=== PATIENT | female | born 1980 | race Native Hawaiian/Other Pacific Islander ===

== ENCOUNTER 2022-06-10 18:37 | Emergency (ER) | payer OTHER, MEDICAID, SELFPAY ==
[2022-06-10] VITALS (9 sets, daily range): BP systolic 109–126; BP diastolic 59–80; PULSE 63–83; RESP 11–23; TEMP 36.9; O2SAT 97–99; BMI 24.9
[2022-06-10 19:39] LABS: Add Manual Diff / Slide Review NO; Basophils Absolute Auto 100 /uL (0-100); Basophils Percent Auto 1.1 % (0-2); Eosinophils Absolute Auto 300 /uL (0-450); Eosinophils Percent Auto 3.6 % (2-4); Hematocrit 35.3 % (36-46); Hemoglobin 12.4 g/dL (12.0-16.0); Lymphocytes Absolute Auto 1500 /uL (1100-4500); Lymphocytes Percent Auto 17.4 % (25-40); Mean Corpuscular HGB Conc 35.1 % (30-36); Mean Corpuscular Hemoglobin 32.9 PG (26-34); Mean Corpuscular Volume 93.6 fL (80-100); Monocytes Absolute Auto 500 /uL (0-900); Monocytes Percent Auto 6.6 % (3-14); Neutrophils Absolute Auto 6000 /uL (1500-7000); Neutrophils Percent Auto 71.3 % (50-75); Platelet Count 349 X10^3/uL (150-400); Red Blood Cell Count 3.76 X10^6/uL (4.0-5.2); White Blood Cell Count 8.4 X10^3/uL (4.5-11.0)
[2022-06-10 19:42] LABS: INR 0.8 (0.9-1.3); Prothrombin Time 9.1 SECONDS (10.1-12.7)
[2022-06-10 19:45] LABS: PTT Partial Thromboplastin Tim 28 SECONDS (26.4-36.2)
[2022-06-10 19:50] LABS: Alanine Aminotransferase 15 IU/L (<35); Albumin 3.7 g/dL (3.5-5.0); Albumin Globulin Ratio 1.2 (1.0-2.8); Alkaline Phosphatase 43 U/L (38-126); Aspartate Aminotransferase 21 IU/L (14-36); BUN Creatinine Ratio 15.4 (6-22); Bilirubin Total 0.2 mg/dL (0.2-1.3); Blood Urea Nitrogen 10 mg/dL (7-17); Calcium 8.6 mg/dL (8.4-10.2); Carbon Dioxide 24 mmol/L (22-32); Chloride 106 mmol/L (98-107); Estimated Glomerular Filt Rate > 60 mL/min (>60); Globulin 3.1 g/dL (1.7-4.1); Glucose 88 mg/dL (70-100); HEMOLYSIS < 15 (0-50); Lipase 136 U/L (23-300); Potassium 3.8 mmol/L (3.4-5.1); Sodium 135 mmol/L (137-145); Total Protein 6.8 g/dL (6.3-8.2)
--- NOTE | 2022-06-10 19:50 | DI.US.S_ITS ---
PROCEDURE: US OB <= 14 WEEKS FETUS INDICATIONS: RLQ PAIN OUTSIDE/PRIOR DATING DATA: Last menstrual period (LMP): Unknown. First dating scan (date and location): 06/10/2022. Estimated date of delivery (RAMBO) from first dating scan: 01/04/2023. TECHNIQUE: Real-time scanning was performed of the fetuses and maternal pelvic organs, with image documentation. Endovaginal scanning: Performed for better visualization of the fetuses and maternal adnexal structures. COMPARISON: None. FINDINGS: Embryo: There is an intrauterine with a gestational sac, yolk sac, and pole identified. The crown-rump length measures up to 3.4 cm corresponding to a gestational age of 10 weeks 2 days. There is heart motion with a rate of 175 beats per minute. Maternal organs: The ovaries were not well seen. No adnexal masses identified. IMPRESSION: 1. Single living intrauterine with measurements corresponding to a calculated gestational age of 10 weeks 2 days and estimated delivery date of 01/04/2023. We strive to produce accurate, complete, and clear reports of imaging services. To assist us in improving patient care, this report was composed using standard report templates and voice recognition software. Therefore, it may contain abnormal punctuation, insertions and/or omissions. Occasional wrong-word or sound-alike substitutions may occur. Though we review the report and make efforts to correct it, we do recommend that the report be read carefully in proper context to recognize any text inaccuracies. Dictated by: Justin Avendaño M.D. on 06/10/2022 at 21:51 Approved by: Justin Avendaño M.D. on 06/10/2022 at 21:54
--- NOTE | 2022-06-10 19:51 | ED.GENADULT ---
HPI - General Adult General Chief complaint: Abdominal Pain Stated complaint: ABD pain, 8-10 weeks Time Seen by Provider: 06/10/22 19:29 History of Present Illness HPI narrative: Otherwise healthy 42-year-old G4 P to 42-year-old woman presents with right lower quadrant pain that is been increasing over the last 24 hours. She has been having chills today notes constipation that was treated with suppository and she started some MiraLax, related nausea. Was the nausea over the last number of weeks that caused her to do a home test last week and confirm that she is in fact . Her 2 children are both in a school in this is is apprised and she notes that she has very irregular periods with her LMP sometime in April. She has not yet decided if the will continue and has not scheduled an appointment with an OBGYN yet. She notes that the right lower quadrant pain is becoming more and more persistent to the point where she is no longer able to ignore it. Because she is she has not taking any [id number] medications. She denies fevers, cough, chills, chest pain, shortness of breath, headaches. She notes that she did not require RhoGAM with her prior pregnancies. She describes some minor spotting yesterday, some minor orthostatic symptoms today and describes herself as parched currently. Related Data Allergies Allergy/AdvReac Type Severity Reaction Status Date / Time No Known Drug Allergies Allergy Verified 06/10/22 19:35 Review of Systems Review of Systems Narrative: Remainder of complete review of systems is otherwise unremarkable except for that included in the HPI. Exam Initial Vital Signs Initial Vital Signs: Vital Signs Temperature 98.4 F 06/10/22 18:54 Pulse Rate 83 06/10/22 18:54 Respiratory Rate 16 06/10/22 18:54 Blood Pressure 121/70 06/10/22 18:54 Pulse Oximetry 99 06/10/22 18:54 Oxygen Delivery Method 06/10/22 18:54 General: Healthy appearing, in no acute distress. Able to give a complete and coherent history. Well-nourished well-developed HEENT: Moist mucous membranes, normal sclera with reactive pupils, Neck: supple Respiratory: Lungs are clear to auscultation, no wheezing no rales no rhonchi. Full and symmetrical air movement Cardiac: Regular rate and rhythm no murmurs no bruits Abdomen: Soft, tender in the right lower quadrant without rebound or guarding. Good bowel tones, no flank pain Skin: Warm and dry, no rashes Neurologic: Grossly neurologically intact with no obvious asymmetries or abnormalities Extremities: No trauma, well perfused Psych: Cooperative, appropriate insight and affect Course Orders Ordered: ED Orders 06/10/22 19:04 Beta HCG, Quant [HCG Quantitative /Beta subunit] Stat Complete Blood Count AUTO DIFF Stat Comprehensive Metabolic Panel Stat Lipase Stat Partial Thromboplastin Time Stat Prothrombin Time INR Stat 06/10/22 19:39 EKG-12 Lead Stat 06/10/22 19:50 US OB <= 14 weeks fetus Stat Discontinued Medications Sodium Chloride (Normal Saline 0.9%) 1,000 mls @ 1,000 mls/hr IV BOLUS ONE Stop: 06/10/22 20:53 Last Infusion: 06/10/22 21:21 Dose: 0 mls/hr Documented By: Admin: 06/10/22 19:55 Dose: 1,000 mls/hr Documented By: MARELY Sodium Chloride (Normal Saline 0.9%) 1,000 mls @ 1,000 mls/hr IV BOLUS ONE Stop: 06/10/22 20:55 Last Admin: 06/10/22 20:07 Dose: Not Given Documented By: RADHA Vital Signs Vital signs: Vital Signs - 8 hr 06/10/22 18:54 06/10/22 19:07 06/10/22 19:08 Temperature 98.4 F Pulse Rate 83 74 70 Respiratory Rate 16 13 11 L Blood Pressure 121/70 Pulse Oximetry 99 98 98 Oxygen Delivery Method Room Air 06/10/22 19:08 06/10/22 19:30 06/10/22 19:30 Temperature Pulse Rate 67 Respiratory Rate 17 Blood Pressure 126/70 113/67 Pulse Oximetry 98 Oxygen Delivery Method Room Air Medical Decision Making Lab Data Result diagrams: 06/10/22 19:04 06/10/22 19:04 Labs: Lab Results 06/10/22 06/10/22 06/10/22 Range/Units 19:04 19:04 19:04 WBC 8.4 (4.5-11.0) X10^3/uL RBC 3.76 L (4.0-5.2) X10^6/uL Hgb 12.4 (12.0-16.0) g/dL Hct 35.3 L (36-46) % MCV 93.6 (80-100) fL MCH 32.9 (26-34) PG MCHC 35.1 (30-36) % RDW 13.0 (11.6-14.8) % Plt Count 349 (150-400) X10^3/uL Neut % (Auto) 71.3 (50-75) % Lymph % (Auto) 17.4 L (25-40) % [place] % (Auto) 6.6 (3-14) % Eos % (Auto) 3.6 (2-4) % Baso % (Auto) 1.1 (0-2) % Neut # (Auto) 6000 (7658-1217) /uL Lymph # (Auto) 1500 (8351-3594) /uL [place] # (Auto) 500 (0-900) /uL Eos # (Auto) 300 (0-450) /uL Baso # (Auto) 100 (0-100) /uL PT 9.1 L (10.1-12.7) SECONDS INR 0.8 L (0.9-1.3) APTT 28 (26.4-36.2) SECONDS Sodium 135 L (137-145) mmol/L Potassium 3.8 (3.4-5.1) mmol/L Chloride 106 (98-107) mmol/L Carbon Dioxide 24 (22-32) mmol/L BUN 10 (7-17) mg/dL Creatinine 0.65 (0.52-1.04) mg/dL Estimated GFR > 60 (>60) mL/min BUN/Creatinine Ratio 15.4 (6-22) Glucose 88 (70-100) mg/dL Calcium 8.6 (8.4-10.2) mg/dL Total Bilirubin 0.2 (0.2-1.3) mg/dL AST 21 (14-36) IU/L ALT 15 (<35) IU/L Alkaline Phosphatase 43 (38-126) U/L Total Protein 6.8 (6.3-8.2) g/dL Albumin 3.7 (3.5-5.0) g/dL Globulin 3.1 (1.7-4.1) g/dL Albumin/Globulin Ratio 1.2 (1.0-2.8) Lipase 136 (23-300) U/L HCG, Quant mIU/mL 06/10/22 Range/Units 19:04 WBC (4.5-11.0) X10^3/uL RBC (4.0-5.2) X10^6/uL Hgb (12.0-16.0) g/dL Hct (36-46) % MCV (80-100) fL MCH (26-34) PG MCHC (30-36) % RDW (11.6-14.8) % Plt Count (150-400) X10^3/uL Neut % (Auto) (50-75) % Lymph % (Auto) (25-40) % [place] % (Auto) (3-14) % Eos % (Auto) (2-4) % Baso % (Auto) (0-2) % Neut # (Auto) (2320-7884) /uL Lymph # (Auto) (1128-3331) /uL [place] # (Auto) (0-900) /uL Eos # (Auto) (0-450) /uL Baso # (Auto) (0-100) /uL PT (10.1-12.7) SECONDS INR (0.9-1.3) APTT (26.4-36.2) SECONDS Sodium (137-145) mmol/L Potassium (3.4-5.1) mmol/L Chloride (98-107) mmol/L Carbon Dioxide (22-32) mmol/L BUN (7-17) mg/dL Creatinine (0.52-1.04) mg/dL Estimated GFR (>60) mL/min BUN/Creatinine Ratio (6-22) Glucose (70-100) mg/dL Calcium (8.4-10.2) mg/dL Total Bilirubin (0.2-1.3) mg/dL AST (14-36) IU/L ALT (<35) IU/L Alkaline Phosphatase (38-126) U/L Total Protein (6.3-8.2) g/dL Albumin (3.5-5.0) g/dL Globulin (1.7-4.1) g/dL Albumin/Globulin Ratio (1.0-2.8) Lipase (23-300) U/L HCG, Quant 046160 mIU/mL Point of Care Testing Test Results Positive Urine Dip Bedside Urine Glucose Negative Bedside Urine Bilirubin - Negative Bedside Urine Ketone - Negative Urine Specific [place] 1.015 Bedside Urine Occult Blood - Negative Bedside Urine pH 7.0 Bedside Urine Protein - Negative Bedside Urine Urobilinogen - Negative Bedside Urine Nitrite - Negative Bedside Urine Leukocytes - Negative Esterase Point of care testing: Point of Care Testing Test Results Positive Urine Dip Bedside Urine Glucose Negative Bedside Urine Bilirubin - Negative Bedside Urine Ketone - Negative Urine Specific [place] 1.015 Bedside Urine Occult Blood - Negative Bedside Urine pH 7.0 Bedside Urine Protein - Negative Bedside Urine Urobilinogen - Negative Bedside Urine Nitrite - Negative Bedside Urine Leukocytes - Negative Esterase Imaging Data US - OB: Radiologist's Impression: Preliminary report indicates intrauterine fetus 10 week 2 days EDC 01/04/2023. No ovarian torsion. Appendix is not seen on this exam MDM Narrative Medical decision making narrative: 42-year-old woman with unexpected discovered about a week and half ago unknown dates presents with increasing right lower quadrant pain. No evidence of urinary tract infection, pyelonephritis, kidney stones. Possibilities include ectopic , ovarian torsion, appendicitis, constipation. Labs and both early OB on the and appendicitis ultrasound are ordered. 945 patient is re-evaluated. She still has moderate right lower quadrant tenderness but definitely no rebound or guarding and certainly not a surgical abdomen. She is informed of her 10 week 2 day intrauterine rinse of ovarian torsion and ectopic . We had a long discussion regarding what to do at this point given the continued abdominal pain, lack of surgical abdominal findings, 10 [address] fetus suggesting the CT scan is not appropriate. We discussed the option of discharge home with no pain medication and recommendation to return if the pain worsens knowing that appendicitis will continue to develop if it is present, ER observation overnight with MRI in the morning, discussion with Surgical Service an admission for serial abdominal exams. She does have support at home, safe transport back to the emergency department. Her decision at this time is to go home. We have very clearly covered signs and symptoms of developing appendicitis and need to return with increasing pain. She will follow-up with an OBGYN. Discharge Plan Departure Patient Disposition: Home Clinical Impression: Acute right lower quadrant pain, Incidental intrauterine Instructions: DI for Appendicitis -- Adult Activity Restrictions/Additional Instructions: Thank you for coming in today I do not have a full explanation for the right lower quadrant pain that you are experiencing. It is not a kidney infection or kidney stone, a twisted ovary or an ectopic . The possibility of appendicitis is still present, however, your exam does not suggest worsening pain and your white blood cell count, the cells that fight infection, are not significantly elevated. Appendicitis will develop and progress. If your pain worsens you absolutely need to return to the emergency department You are 10 weeks and 2 days with estimated due date of January 04, 2023. Please make sure you are drinking plenty of fluids, this pain may simply be constipation from early . I would also recommend beginning vitamins. You will need follow-up in the near future for your . I wish you the best
[2022-06-10] MEDS: SODIUM CHLORIDE 0.9% 1,000 ML 1000 ML IV (19:55)
[2022-06-10 20:48] LABS: HCG Quantitative /Beta subunit 127620 mIU/mL
== END 2022-06-10 22:15 | disposition home or self-care (01) ==
PROVIDERS: Emergency Provider Emergency Medicine
DX: O26.891 Other specified pregnancy related conditions, first trimester (principal); R10.31 Right lower quadrant pain; Z3A.10 10 weeks gestation of pregnancy
CPT/HCPCS: 36415; 76801; 76817; 80053; 81003; 81025; 83690; 84702; 85025; 85610; 85730; 93005; 93010; 96360; 99284

== ENCOUNTER → 2022-09-23 12:03 | Outpatient (CLI) | payer OTHER, MEDICAID, SELFPAY ==
[2022-09-23 12:47] LABS: Influenza A - CEPHEID Flu A NEGATIVE (NEGATIVE); Influenza B - CEPHEID Flu B NEGATIVE (NEGATIVE); Respiratory Syncytial Virus Negative (Negative)
[2022-09-23 12:49] LABS: COVID-19 CEPHEID 4-PLEX PCR Negative (Negative)
== END ==
PROVIDERS: Visit Provider Physician Assistant Medical
DX: R05.9 Cough, unspecified (principal)
CPT/HCPCS: 0241U

== ENCOUNTER → 2023-07-02 09:23 | Outpatient (CLI) | payer OTHER, MEDICAID, SELFPAY ==
[2023-07-02 10:21] LABS: Hematocrit 39.8 % (36-46); Hemoglobin 13.8 g/dL (12.0-16.0); Mean Corpuscular HGB Conc 34.6 % (30-36); Mean Corpuscular Hemoglobin 32.4 PG (26-34); Mean Corpuscular Volume 93.7 fL (80-100); Platelet Count 351 X10^3/uL (150-400); Red Blood Cell Count 4.25 X10^6/uL (4.0-5.2); Red Cell Distribution Width 12.5 % (11.6-14.8); White Blood Cell Count 4.4 X10^3/uL (4.5-11.0)
[2023-07-02 10:51] LABS: HEMOLYSIS < 15 (0-50); Iron 107 ug/dL (37-170)
[2023-07-02 10:55] LABS: Alanine Aminotransferase 22 IU/L (<35); Albumin 4.3 g/dL (3.5-5.0); Albumin Globulin Ratio 1.4 (1.0-2.8); Alkaline Phosphatase 43 U/L (38-126); Aspartate Aminotransferase 25 IU/L (14-36); BUN Creatinine Ratio 9.5 (6-22); Bilirubin Total 0.9 mg/dL (0.2-1.3); Blood Urea Nitrogen 8 mg/dL (7-17); Calcium 9.4 mg/dL (8.4-10.2); Carbon Dioxide 28 mmol/L (22-32); Chloride 104 mmol/L (98-107); Cholesterol 209 mg/dL (140-199); Estimated Glomerular Filt Rate > 60 mL/min (>60); Globulin 3.1 g/dL (1.7-4.1); Glucose 94 mg/dL (70-100); HDL Cholesterol 78 mg/dL (40-60); HEMOLYSIS < 15 (0-50); LDL Cholesterol Calculated 104 mg/dL (<100); Sodium 139 mmol/L (137-145); Total Protein 7.4 g/dL (6.3-8.2); Triglycerides 136 mg/dL (35-150)
[2023-07-02 11:04] LABS: Percent Iron Saturation 31 % (15-50); Total Iron Binding Capacity 349 ug/dL (265-497); Transferrin 278 mg/dL (206-381)
[2023-07-02 11:22] LABS: Hepatitis B Surface Antigen POSITIVE s/c (NEGATIVE); TSH w/ Reflex to FT4 1.04 uIU/mL (0.47-4.68)
[2023-07-02 11:27] LABS: Ferritin 50 ng/mL (6-137)
[2023-07-03 03:36] LABS: Hepatitis B Core Antibody Positive (Negative); Hepatitis BE Antigen Negative (Negative)
[2023-07-03 08:02] LABS: Hepatitis B Core IgM Negative (Negative); Hepatitis B Surf Ab Qualitativ Non Reactive (.)
[2023-07-04 20:29] LABS: Hepatitis B Virus DNA <10 IU/mL (.)
[2023-07-06 06:07] LABS: Hepatitis Be Antibody Positive (Negative)
== END ==
PROVIDERS: PCP Registered Nurse Diabetes Educator; Referring Provider Registered Nurse Diabetes Educator; Visit Provider Registered Nurse Diabetes Educator
DX: Z00.00 Encounter for general adult medical examination without abnormal findings (principal); N92.0 Excessive and frequent menstruation with regular cycle; R53.83 Other fatigue; B18.1 Chronic viral hepatitis B without delta-agent
CPT/HCPCS: 36415; 80053; 80061; 82728; 83540; 83550; 84443; 85027; 86704; 86705; 86706; 86707; 87340; 87350; 87517

== ENCOUNTER → 2023-08-06 06:44 | Outpatient (CLI) | payer OTHER, MEDICAID, SELFPAY ==
--- NOTE | 2023-08-06 06:45 | DI.US.S_ITS ---
PROCEDURE: US PELVIC COMPLETE INDICATIONS: MENOMETRORRHAGIA TECHNIQUE: Real-time scanning was performed of the pelvic organs, with image documentation. Additional endovaginal scanning was necessary due to incomplete visualization of the adnexal and endometrial structures by transabdominal scanning. COMPARISON: None. FINDINGS: Uterus: Uterus is anteverted and normal in size at 9.7 x 3.8 x 4.9 cm. The myometrium is homogeneous. The endometrium measures 4 mm combined thickness. Ovaries: The right ovary measures 3.0 x 2.6 x 2.5 cm, with a calculated ovarian volume of 10 cc. The left ovary measures 2.4 x 2.3 x 2.0 cm, with a calculated ovarian volume of 6 cc. The ovaries have a normal sonographic appearance. Less than 12 follicles can be seen in each ovary. No adnexal masses are seen. Other: No pathologic free abdominal or pelvic fluid. IMPRESSION: No findings to explain the patient's menometrorrhagia. Unremarkable pelvic ultrasound. We strive to produce accurate, complete, and clear reports of imaging services. To assist us in improving patient care, this report was composed using standard report templates and voice recognition software. Therefore, it may contain abnormal punctuation, insertions and/or omissions. Occasional wrong-word or sound-alike substitutions may occur. Though we review the report and make efforts to correct it, we do recommend that the report be read carefully in proper context to recognize any text inaccuracies. Dictated by: Hoang Tan M.D. on 08/06/2023 at 10:04 Approved by: Hoang Tan M.D. on 08/06/2023 at 10:05
== END ==
PROVIDERS: PCP Registered Nurse Diabetes Educator; Referring Provider Registered Nurse Diabetes Educator; Visit Provider Registered Nurse Diabetes Educator
DX: N92.1 Excessive and frequent menstruation with irregular cycle (principal)
CPT/HCPCS: 76830; 76856

== ENCOUNTER → 2025-05-17 10:43 | Outpatient (CLI) | payer OTHER, SELFPAY ==
--- NOTE | 2025-05-17 10:45 | DI.RAD.S_ITS ---
PROCEDURE: XR CHEST 2V INDICATIONS: worsening cough, burning in bilat upper lungs TECHNIQUE: 2 views of the chest were acquired. COMPARISON: None. FINDINGS: Surgical changes and devices: None. Lungs and pleura: Lungs are clear. No pleural effusions or pneumothorax. Mediastinum: Mediastinal contours are normal. Heart size is normal. Bones and chest wall: No suspicious bony abnormalities. Soft tissues appear unremarkable. IMPRESSION: No acute cardiopulmonary abnormality is seen. Dictated by: Malik Villarreal M.D. on 05/17/2025 at 11:38 Approved by: Malik Villarreal M.D. on 05/17/2025 at 11:38
== END ==
PROVIDERS: PCP Registered Nurse Diabetes Educator; Referring Provider Registered Nurse Diabetes Educator; Visit Provider Student in an Organized Health Care Education/Training Program
DX: R05.8 Other specified cough (principal); R52 Pain, unspecified
CPT/HCPCS: 71046